=== PATIENT | female | born 1930 | race African-American/Black ===

== ENCOUNTER 2018-04-25 11:50 | Inpatient (IN) ==
[2018-04-25] MEDS ORDERED: ONDANSETRON 4 MG/2 ML VIAL IV PRN (17:39)
[2018-04-25] MEDS ORDERED: MAGNESIUM SULF RIDER 4 GM in PREMIX 1 EACH IV PRN (17:39)
[2018-04-25] MEDS ORDERED: ZALEPLON 5 MG CAPSULE PO PRN (17:39)
[2018-04-25] MEDS ORDERED: MAGNESIUM SULF RIDER 2 GM in PREMIX 1 EACH IV PRN (17:39)
[2018-04-25] MEDS ORDERED: ACETAMINOPHEN 325 MG TABLET PO PRN (17:39)
[2018-04-25] MEDS ORDERED: ALBUTEROL 2.5 MG/3 ML NEB RESP TX PRN (17:39)
[2018-04-25] MEDS: IPRATROPIUM 500 MCG/2.5 ML NEB RESP TX SCH (19:03)
[2018-04-25] MEDS: ALBUTEROL 2.5 MG/3 ML NEB RESP TX SCH ×2 (19:03→23:36)
[2018-04-25] MEDS: FUROSEMIDE 40 MG/4 ML VIAL IV SCH (19:32)
[2018-04-25] MEDS: methylPREDNISolone SOD SUC 40 MG/1 ML VIAL IV SCH (19:35)
[2018-04-25] MEDS: cefTRIAXone 1,000 MG in SYRINGE 1 EACH IV SCH (19:39)
[2018-04-25] MEDS: PHENYTOIN ER 100 MG CAPSULE PO SCH (21:05)
[2018-04-25] MEDS: CARVEDILOL 3.125 MG TABLET PO SCH (21:06)
[2018-04-25] MEDS: BUDESONIDE/FORMOTEROL 160-4.5 INHALER 6 GM INH SCH (21:10)
[2018-04-26] MEDS: IPRATROPIUM 500 MCG/2.5 ML NEB RESP TX SCH (01:14)
[2018-04-26 01:24] LABS: Apearance,Urine CLEAR (Clear); Bilirubin,Urine Negative (Negative); Blood, Urine Negative (Negative); Glucose,Urine (UA) Negative (Negative); Ketones,Urine Negative (Negative); Mucus,Urine Occasional /LPF (Occasional); Nitrite,Urine Negative (Negative); Protein,Urine 100 MG/DL; RBC,Urine 1 /HPF (0-4); Urine Color Straw (Yellow); Urine Specific Gravity 1.005 (1.001-1.035); Urine Urobilinogen < 2.0 EU/DL (0.2-1.0); WBC,Urine 2 /HPF (0-6)
[2018-04-26] MEDS: methylPREDNISolone SOD SUC 40 MG/1 ML VIAL IV SCH ×3 (02:43→17:49)
[2018-04-26] MEDS: ALBUTEROL 2.5 MG/3 ML NEB RESP TX SCH (03:03)
[2018-04-26 04:19] LABS: Basophils % 0.4 % (0.0-0.8); Hematocrit 25.7 VOL% (35.7-47.0); Hemoglobin 8.1 GM/DL (12.0-16.0); Immature Granulocytes % 0.4 %; Immature Granulocytes Absolute 0.01 #; Lymphocytes # 0.5 10*3/uL (1.4-4.0); Lymphocytes % 19.2 % (21.3-54.2); Mean Corpuscular HGB Conc 31.5 GM/DL (32-36); Mean Corpuscular Hemoglobin 29 PG (27-34); Mean Corpuscular Volume 90.8 FL (87-102); Monocytes # 0.1 10*3/uL (0.11-0.8); Monocytes % 2.1 % (1.7-12.7); Neutrophils # 1.9 10*3/uL (1.4-7.4); Neutrophils % 77.9 % (38.7-73.9); Platelet Count 167 T/CUMM (130-400); Red Blood Count 2.83 MC/CUMM (3.8-5.5); Red Cell Distribution Width 16.1 % (9.3-17.3); White Blood Count 2.4 T/CUMM (4-12)
[2018-04-26 04:38] LABS: Albumin 2.3 G/DL (3.4-5.0); Bilirubin,Total 0.4 MG/DL (0.2-1.0); Calcium 8.4 MG/DL (8.5-10.1); Osmolality,Calculated 299.1 MOS/KG (273-304); Potassium 5.1 MMOL/L (3.5-5.1); Risk Ratio 2.04; Total Protein 6.2 G/DL (6.4-8.3); VLDL CHOLESTEROL 14.8 MG/DL
[2018-04-26] MEDS: ALBUTEROL/IPRATROPIUM 3 ML NEB RESP TX SCH ×3 (08:14→19:23)
[2018-04-26] MEDS: FUROSEMIDE 40 MG/4 ML VIAL IV SCH ×2 (09:32→15:30)
[2018-04-26] MEDS: amLODIPine 10 MG TABLET PO SCH (09:33)
[2018-04-26] MEDS: PHENYTOIN ER 100 MG CAPSULE PO SCH ×2 (09:33→20:53)
[2018-04-26] MEDS: CARVEDILOL 3.125 MG TABLET PO SCH (09:33)
[2018-04-26] MEDS: ASPIRIN CHEW 81 MG TABLET PO SCH (09:33)
[2018-04-26] MEDS: ENOXAPARIN 30 MG/0.3 ML SYRINGE SUBCUT SCH (09:34)
[2018-04-26] MEDS: PANTOPRAZOLE 40 MG TABLET PO SCH (09:34)
[2018-04-26] MEDS: NICOTINE 21 MG/24 HR PATCH TRANSDERM SCH (09:34)
[2018-04-26] MEDS: BUDESONIDE/FORMOTEROL 160-4.5 INHALER 6 GM INH SCH ×2 (09:35→20:56)
[2018-04-26 09:45] LABS: Basophils % 0.4 % (0.0-0.8); Hematocrit 26.6 VOL% (35.7-47.0); Hemoglobin 8.7 GM/DL (12.0-16.0); Immature Granulocytes % 0.4 %; Immature Granulocytes Absolute 0.01 #; Lymphocytes # 0.5 10*3/uL (1.4-4.0); Lymphocytes % 21.5 % (21.3-54.2); Mean Corpuscular HGB Conc 32.7 GM/DL (32-36); Mean Corpuscular Hemoglobin 30 PG (27-34); Mean Corpuscular Volume 92.7 FL (87-102); Mean Platelet Volume 10.8 FL (9.6-12.0); Monocytes % 1.8 % (1.7-12.7); Neutrophils # 1.7 10*3/uL (1.4-7.4); Neutrophils % 75.9 % (38.7-73.9); Platelet Count 184 T/CUMM (130-400); Red Blood Count 2.87 MC/CUMM (3.8-5.5); Red Cell Distribution Width 16.2 % (9.3-17.3); White Blood Count 2.3 T/CUMM (4-12)
[2018-04-26 10:01] LABS: Folate 9.1 NG/ML (5.4-24.0); Vitamin B12 391 PG/ML (211-911)
[2018-04-26 11:01] LABS: Sedimentation Rate-Westergren 56 MM/HR (0-30)
[2018-04-26] MEDS: cefTRIAXone 1,000 MG in SYRINGE 1 EACH IV SCH (17:49)
[2018-04-26] MEDS: ROSUVASTATIN 10 MG TABLET PO SCH (20:54)
[2018-04-26] MEDS: CARVEDILOL 6.25 MG TABLET PO SCH (20:54)
[2018-04-27] MEDS: ALBUTEROL/IPRATROPIUM 3 ML NEB RESP TX SCH ×4 (00:57→19:29)
[2018-04-27] MEDS: methylPREDNISolone SOD SUC 40 MG/1 ML VIAL IV SCH ×3 (02:29→18:36)
[2018-04-27 03:01] LABS: Basophils % 0.2 % (0.0-0.8); Hematocrit 24.1 VOL% (35.7-47.0); Hemoglobin 7.8 GM/DL (12.0-16.0); Immature Granulocytes % 0.2 %; Immature Granulocytes Absolute 0.01 #; Lymphocytes # 0.8 10*3/uL (1.4-4.0); Lymphocytes % 19.1 % (21.3-54.2); Mean Corpuscular HGB Conc 32.4 GM/DL (32-36); Mean Corpuscular Hemoglobin 29 PG (27-34); Mean Corpuscular Volume 90.6 FL (87-102); Monocytes # 0.2 10*3/uL (0.11-0.8); Monocytes % 4.2 % (1.7-12.7); Neutrophils # 3.1 10*3/uL (1.4-7.4); Neutrophils % 76.3 % (38.7-73.9); Platelet Count 167 T/CUMM (130-400); Red Blood Count 2.66 MC/CUMM (3.8-5.5); Red Cell Distribution Width 15.9 % (9.3-17.3); White Blood Count 4.1 T/CUMM (4-12)
[2018-04-27 03:26] LABS: Calcium 7.8 MG/DL (8.5-10.1); Osmolality,Calculated 306.8 MOS/KG (273-304); Potassium 4.5 MMOL/L (3.5-5.1)
[2018-04-27 03:29] LABS: Albumin 2.3 G/DL (3.4-5.0); Bilirubin,Total 0.6 MG/DL (0.2-1.0); Calcium 7.9 MG/DL (8.5-10.1); Potassium 4.5 MMOL/L (3.5-5.1)
[2018-04-27] MEDS: FUROSEMIDE 40 MG/4 ML VIAL IV SCH ×2 (08:03→17:24)
[2018-04-27] MEDS ORDERED: SODIUM CHLORIDE 0.9% 1,000 ML IV PRN (08:24)
[2018-04-27] MEDS ORDERED: FUROSEMIDE 40 MG/4 ML VIAL IV ONE (08:25)
[2018-04-27] MEDS: NICOTINE 21 MG/24 HR PATCH TRANSDERM SCH (09:22)
[2018-04-27] MEDS: PHENYTOIN ER 100 MG CAPSULE PO SCH ×2 (09:23→20:27)
[2018-04-27] MEDS: ENOXAPARIN 30 MG/0.3 ML SYRINGE SUBCUT SCH (09:23)
[2018-04-27] MEDS: amLODIPine 10 MG TABLET PO SCH (09:23)
[2018-04-27] MEDS: BUDESONIDE/FORMOTEROL 160-4.5 INHALER 6 GM INH SCH ×2 (09:23→20:27)
[2018-04-27] MEDS: CARVEDILOL 6.25 MG TABLET PO SCH (09:23)
[2018-04-27] MEDS: PANTOPRAZOLE 40 MG TABLET PO SCH (09:23)
[2018-04-27] MEDS: ASPIRIN CHEW 81 MG TABLET PO SCH (09:23)
[2018-04-27] MEDS: cefTRIAXone 1,000 MG in SYRINGE 1 EACH IV SCH (18:32)
[2018-04-27] MEDS: ROSUVASTATIN 10 MG TABLET PO SCH (20:26)
[2018-04-27] MEDS: CARVEDILOL 12.5 MG TABLET PO SCH (20:27)
[2018-04-27] MEDS: guaiFENesin 200 MG/10 ML UDCUP PO PRN (21:30)
[2018-04-27 22:33] LABS: Hematocrit 35.8 VOL% (35.7-47.0); Hemoglobin 11.4 GM/DL (12.0-16.0)
[2018-04-28] MEDS: ALBUTEROL/IPRATROPIUM 3 ML NEB RESP TX SCH ×4 (00:13→19:25)
[2018-04-28] MEDS: guaiFENesin 200 MG/10 ML UDCUP PO PRN (02:08)
[2018-04-28] MEDS: methylPREDNISolone SOD SUC 40 MG/1 ML VIAL IV SCH ×3 (02:08→17:00)
[2018-04-28 04:18] LABS: Basophils % 0.1 % (0.0-0.8); Hematocrit 35.1 VOL% (35.7-47.0); Hemoglobin 11.3 GM/DL (12.0-16.0); Immature Granulocytes % 0.4 %; Immature Granulocytes Absolute 0.03 #; Lymphocytes # 0.9 10*3/uL (1.4-4.0); Lymphocytes % 12.4 % (21.3-54.2); Mean Corpuscular HGB Conc 32.2 GM/DL (32-36); Mean Corpuscular Hemoglobin 29 PG (27-34); Mean Corpuscular Volume 89.5 FL (87-102); Mean Platelet Volume 10.5 FL (9.6-12.0); Monocytes # 0.2 10*3/uL (0.11-0.8); Monocytes % 2.9 % (1.7-12.7); Neutrophils # 5.7 10*3/uL (1.4-7.4); Neutrophils % 84.2 % (38.7-73.9); Platelet Count 195 T/CUMM (130-400); Red Blood Count 3.92 MC/CUMM (3.8-5.5); Red Cell Distribution Width 15.7 % (9.3-17.3); White Blood Count 6.8 T/CUMM (4-12)
[2018-04-28 04:52] LABS: Calcium 8.4 MG/DL (8.5-10.1); Osmolality,Calculated 298.4 MOS/KG (273-304)
[2018-04-28] MEDS: CARVEDILOL 12.5 MG TABLET PO SCH ×2 (08:50→20:23)
[2018-04-28] MEDS: FUROSEMIDE 40 MG/4 ML VIAL IV SCH ×2 (08:50→16:54)
[2018-04-28] MEDS: PHENYTOIN ER 100 MG CAPSULE PO SCH ×2 (08:50→20:22)
[2018-04-28] MEDS: amLODIPine 10 MG TABLET PO SCH (08:50)
[2018-04-28] MEDS: ASPIRIN CHEW 81 MG TABLET PO SCH (08:50)
[2018-04-28] MEDS: NICOTINE 21 MG/24 HR PATCH TRANSDERM SCH (08:54)
[2018-04-28] MEDS: ENOXAPARIN 30 MG/0.3 ML SYRINGE SUBCUT SCH (08:57)
[2018-04-28] MEDS: BUDESONIDE/FORMOTEROL 160-4.5 INHALER 6 GM INH SCH ×2 (08:57→20:23)
[2018-04-28] MEDS: PANTOPRAZOLE 40 MG TABLET PO SCH (08:57)
[2018-04-28 10:19] LABS: Hemoglobin A1 (Alkaline) 62.7 % (96.5-98.5); Hemoglobin A2 (Alkaline) 1.9 % (1.5-3.5); Hemoglobin S (Alkaline) 35.4 %
[2018-04-28] MEDS: cefTRIAXone 1,000 MG in SYRINGE 1 EACH IV SCH (17:02)
[2018-04-28] MEDS: ROSUVASTATIN 10 MG TABLET PO SCH (20:22)
[2018-04-29] MEDS: ALBUTEROL/IPRATROPIUM 3 ML NEB RESP TX SCH ×4 (00:06→19:19)
[2018-04-29] MEDS: methylPREDNISolone SOD SUC 40 MG/1 ML VIAL IV SCH ×3 (02:22→19:06)
[2018-04-29 03:46] LABS: Basophils % 0.3 % (0.0-0.8); Hematocrit 33.1 VOL% (35.7-47.0); Hemoglobin 10.9 GM/DL (12.0-16.0); Immature Granulocytes % 0.5 %; Immature Granulocytes Absolute 0.03 #; Lymphocytes # 1.3 10*3/uL (1.4-4.0); Lymphocytes % 19.2 % (21.3-54.2); Mean Corpuscular HGB Conc 32.9 GM/DL (32-36); Mean Corpuscular Hemoglobin 29 PG (27-34); Mean Corpuscular Volume 88.7 FL (87-102); Mean Platelet Volume 11.1 FL (9.6-12.0); Monocytes # 0.3 10*3/uL (0.11-0.8); Monocytes % 4.9 % (1.7-12.7); Neutrophils # 4.9 10*3/uL (1.4-7.4); Neutrophils % 75.1 % (38.7-73.9); Platelet Count 187 T/CUMM (130-400); Red Blood Count 3.73 MC/CUMM (3.8-5.5); Red Cell Distribution Width 15.5 % (9.3-17.3); White Blood Count 6.5 T/CUMM (4-12)
[2018-04-29 04:06] LABS: Osmolality,Calculated 305.1 MOS/KG (273-304); Potassium 4.5 MMOL/L (3.5-5.1)
[2018-04-29] MEDS: ASPIRIN CHEW 81 MG TABLET PO SCH (09:01)
[2018-04-29] MEDS: hydrALAZINE 25 MG TABLET PO SCH ×2 (09:01→20:41)
[2018-04-29] MEDS: CARVEDILOL 12.5 MG TABLET PO SCH ×2 (09:01→20:41)
[2018-04-29] MEDS: PHENYTOIN ER 100 MG CAPSULE PO SCH ×2 (09:02→20:41)
[2018-04-29] MEDS: ENOXAPARIN 30 MG/0.3 ML SYRINGE SUBCUT SCH (09:02)
[2018-04-29] MEDS: NICOTINE 21 MG/24 HR PATCH TRANSDERM SCH (09:02)
[2018-04-29] MEDS: amLODIPine 10 MG TABLET PO SCH (09:03)
[2018-04-29] MEDS: BUDESONIDE/FORMOTEROL 160-4.5 INHALER 6 GM INH SCH ×2 (09:03→20:41)
[2018-04-29] MEDS: PANTOPRAZOLE 40 MG TABLET PO SCH (09:24)
[2018-04-29] MEDS: FUROSEMIDE 40 MG/4 ML VIAL IV SCH ×3 (09:29→16:22)
[2018-04-29] MEDS ORDERED: MAGNESIUM HYDROXIDE SUSP 30 ML UDCUP PO PRN (09:49)
[2018-04-29] MEDS: POLYETHYLENE GLYCOL POWDER 17 GM PACK PO SCH (10:30)
[2018-04-29] MEDS ORDERED: diphenhydrAMINE CAP 25 MG CAPSULE PO PRN (16:13)
[2018-04-29] MEDS: ROSUVASTATIN 10 MG TABLET PO SCH (20:41)
[2018-04-30] MEDS: ALBUTEROL/IPRATROPIUM 3 ML NEB RESP TX SCH ×4 (00:24→19:23)
[2018-04-30] MEDS: methylPREDNISolone SOD SUC 40 MG/1 ML VIAL IV SCH ×3 (01:01→17:47)
[2018-04-30 03:56] LABS: Hematocrit 34.4 VOL% (35.7-47.0); Hemoglobin 11.3 GM/DL (12.0-16.0); Immature Granulocytes % 0.6 %; Immature Granulocytes Absolute 0.04 #; Lymphocytes # 0.7 10*3/uL (1.4-4.0); Lymphocytes % 10.8 % (21.3-54.2); Mean Corpuscular HGB Conc 32.8 GM/DL (32-36); Mean Corpuscular Hemoglobin 29 PG (27-34); Mean Corpuscular Volume 89.6 FL (87-102); Monocytes # 0.2 10*3/uL (0.11-0.8); Monocytes % 2.9 % (1.7-12.7); Neutrophils # 5.4 10*3/uL (1.4-7.4); Neutrophils % 85.7 % (38.7-73.9); Platelet Count 189 T/CUMM (130-400); Red Blood Count 3.84 MC/CUMM (3.8-5.5); Red Cell Distribution Width 15.4 % (9.3-17.3); White Blood Count 6.3 T/CUMM (4-12)
[2018-04-30 04:23] LABS: Calcium 7.8 MG/DL (8.5-10.1); Osmolality,Calculated 309.4 MOS/KG (273-304)
[2018-04-30] MEDS: guaiFENesin 200 MG/10 ML UDCUP PO PRN ×2 (06:17→11:02)
[2018-04-30] MEDS: FUROSEMIDE 40 MG/4 ML VIAL IV SCH ×2 (09:47→16:02)
[2018-04-30] MEDS: ENOXAPARIN 30 MG/0.3 ML SYRINGE SUBCUT SCH (09:47)
[2018-04-30] MEDS: NICOTINE 21 MG/24 HR PATCH TRANSDERM SCH (09:47)
[2018-04-30] MEDS: PHENYTOIN ER 100 MG CAPSULE PO SCH ×2 (09:48→20:21)
[2018-04-30] MEDS: amLODIPine 10 MG TABLET PO SCH (09:48)
[2018-04-30] MEDS: CARVEDILOL 12.5 MG TABLET PO SCH ×2 (09:48→20:21)
[2018-04-30] MEDS: hydrALAZINE 25 MG TABLET PO SCH ×3 (09:48→20:21)
[2018-04-30] MEDS: PANTOPRAZOLE 40 MG TABLET PO SCH (09:48)
[2018-04-30] MEDS: ASPIRIN CHEW 81 MG TABLET PO SCH (09:48)
[2018-04-30] MEDS: BUDESONIDE/FORMOTEROL 160-4.5 INHALER 6 GM INH SCH ×2 (09:49→20:21)
[2018-04-30] MEDS: POLYETHYLENE GLYCOL POWDER 17 GM PACK PO SCH (09:49)
[2018-04-30] MEDS: metOLazone 5 MG TABLET PO SCH (12:53)
[2018-04-30] MEDS: ROSUVASTATIN 10 MG TABLET PO SCH (20:21)
[2018-05-01] MEDS: ALBUTEROL/IPRATROPIUM 3 ML NEB RESP TX SCH ×4 (00:23→19:11)
[2018-05-01] MEDS: methylPREDNISolone SOD SUC 40 MG/1 ML VIAL IV SCH ×3 (02:21→17:18)
[2018-05-01 05:35] LABS: Hematocrit 35.4 VOL% (35.7-47.0); Hemoglobin 11.8 GM/DL (12.0-16.0); Immature Granulocytes % 1.1 %; Immature Granulocytes Absolute 0.06 #; Lymphocytes # 0.7 10*3/uL (1.4-4.0); Lymphocytes % 12.3 % (21.3-54.2); Mean Corpuscular HGB Conc 33.3 GM/DL (32-36); Mean Corpuscular Hemoglobin 30 PG (27-34); Mean Corpuscular Volume 89.2 FL (87-102); Mean Platelet Volume 10.7 FL (9.6-12.0); Monocytes # 0.2 10*3/uL (0.11-0.8); Monocytes % 3.7 % (1.7-12.7); Neutrophils # 4.7 10*3/uL (1.4-7.4); Neutrophils % 82.9 % (38.7-73.9); Platelet Count 203 T/CUMM (130-400); Red Blood Count 3.97 MC/CUMM (3.8-5.5); Red Cell Distribution Width 15.4 % (9.3-17.3); White Blood Count 5.7 T/CUMM (4-12)
[2018-05-01 05:48] LABS: Osmolality,Calculated 310.4 MOS/KG (273-304); Potassium 4.8 MMOL/L (3.5-5.1)
[2018-05-01 05:49] LABS: Osmolality,Calculated 310.4 MOS/KG (273-304); Potassium 4.9 MMOL/L (3.5-5.1)
[2018-05-01] MEDS: NICOTINE 21 MG/24 HR PATCH TRANSDERM SCH (08:33)
[2018-05-01] MEDS: POLYETHYLENE GLYCOL POWDER 17 GM PACK PO SCH (08:35)
[2018-05-01] MEDS: PHENYTOIN ER 100 MG CAPSULE PO SCH ×2 (08:36→21:44)
[2018-05-01] MEDS: ENOXAPARIN 30 MG/0.3 ML SYRINGE SUBCUT SCH (08:37)
[2018-05-01] MEDS: CARVEDILOL 12.5 MG TABLET PO SCH ×2 (08:37→21:44)
[2018-05-01] MEDS: metOLazone 5 MG TABLET PO SCH (08:37)
[2018-05-01] MEDS: hydrALAZINE 25 MG TABLET PO SCH ×3 (08:37→21:43)
[2018-05-01] MEDS: amLODIPine 10 MG TABLET PO SCH (08:37)
[2018-05-01] MEDS: PANTOPRAZOLE 40 MG TABLET PO SCH (08:37)
[2018-05-01] MEDS: FUROSEMIDE 40 MG/4 ML VIAL IV SCH ×2 (08:37→15:11)
[2018-05-01] MEDS: ASPIRIN CHEW 81 MG TABLET PO SCH (08:37)
[2018-05-01] MEDS: BUDESONIDE/FORMOTEROL 160-4.5 INHALER 6 GM INH SCH ×2 (09:07→21:45)
[2018-05-01] MEDS: ROSUVASTATIN 10 MG TABLET PO SCH (21:44)
[2018-05-02] MEDS: ALBUTEROL/IPRATROPIUM 3 ML NEB RESP TX SCH ×4 (00:17→19:39)
[2018-05-02] MEDS: methylPREDNISolone SOD SUC 40 MG/1 ML VIAL IV SCH ×2 (02:17→09:31)
[2018-05-02 06:06] LABS: Basophils % 0.2 % (0.0-0.8); Hemoglobin 11.2 GM/DL (12.0-16.0); Immature Granulocytes % 1.3 %; Immature Granulocytes Absolute 0.08 #; Lymphocytes % 16.1 % (21.3-54.2); Mean Corpuscular HGB Conc 32.9 GM/DL (32-36); Mean Corpuscular Hemoglobin 29 PG (27-34); Mean Platelet Volume 11.1 FL (9.6-12.0); Monocytes # 0.5 10*3/uL (0.11-0.8); Monocytes % 7.7 % (1.7-12.7); Neutrophils # 4.5 10*3/uL (1.4-7.4); Neutrophils % 74.7 % (38.7-73.9); Platelet Count 207 T/CUMM (130-400); Red Blood Count 3.82 MC/CUMM (3.8-5.5); Red Cell Distribution Width 15.7 % (9.3-17.3)
[2018-05-02 06:23] LABS: Calcium 8.1 MG/DL (8.5-10.1); Osmolality,Calculated 313.3 MOS/KG (273-304); Potassium 4.6 MMOL/L (3.5-5.1)
[2018-05-02 06:24] LABS: Calcium 7.9 MG/DL (8.5-10.1); Osmolality,Calculated 313.3 MOS/KG (273-304); Potassium 4.6 MMOL/L (3.5-5.1)
[2018-05-02] MEDS: PANTOPRAZOLE 40 MG TABLET PO SCH ×2 (07:09→09:35)
[2018-05-02] MEDS: POLYETHYLENE GLYCOL POWDER 17 GM PACK PO SCH (09:07)
[2018-05-02] MEDS: hydrALAZINE 25 MG TABLET PO SCH ×3 (09:08→20:59)
[2018-05-02] MEDS: PHENYTOIN ER 100 MG CAPSULE PO SCH ×2 (09:10→20:59)
[2018-05-02] MEDS: NICOTINE 21 MG/24 HR PATCH TRANSDERM SCH (09:10)
[2018-05-02] MEDS: amLODIPine 10 MG TABLET PO SCH (09:11)
[2018-05-02] MEDS: ASPIRIN CHEW 81 MG TABLET PO SCH (09:11)
[2018-05-02] MEDS: metOLazone 5 MG TABLET PO SCH (09:12)
[2018-05-02] MEDS: CARVEDILOL 12.5 MG TABLET PO SCH ×2 (09:12→20:59)
[2018-05-02] MEDS: ENOXAPARIN 30 MG/0.3 ML SYRINGE SUBCUT SCH (09:13)
[2018-05-02] MEDS: FUROSEMIDE 40 MG/4 ML VIAL IV SCH ×2 (09:15→16:21)
[2018-05-02] MEDS: BUDESONIDE/FORMOTEROL 160-4.5 INHALER 6 GM INH SCH ×2 (09:35→20:59)
[2018-05-02] MEDS: ROSUVASTATIN 10 MG TABLET PO SCH (20:59)
[2018-05-03] MEDS: ALBUTEROL/IPRATROPIUM 3 ML NEB RESP TX SCH ×4 (01:29→20:20)
[2018-05-03 05:07] LABS: Basophils % 0.2 % (0.0-0.8); Eosinophils % 0.5 % (0.00-10.9); Hemoglobin 11.4 GM/DL (12.0-16.0); Immature Granulocytes % 0.9 %; Immature Granulocytes Absolute 0.06 #; Lymphocytes # 1.9 10*3/uL (1.4-4.0); Lymphocytes % 28.9 % (21.3-54.2); Mean Corpuscular HGB Conc 33.5 GM/DL (32-36); Mean Corpuscular Hemoglobin 30 PG (27-34); Mean Corpuscular Volume 88.5 FL (87-102); Mean Platelet Volume 11.5 FL (9.6-12.0); Monocytes # 0.6 10*3/uL (0.11-0.8); Monocytes % 8.4 % (1.7-12.7); Neutrophils % 61.1 % (38.7-73.9); Platelet Count 209 T/CUMM (130-400); Red Blood Count 3.84 MC/CUMM (3.8-5.5); Red Cell Distribution Width 15.7 % (9.3-17.3); White Blood Count 6.6 T/CUMM (4-12)
[2018-05-03 05:35] LABS: Calcium 8.2 MG/DL (8.5-10.1); Osmolality,Calculated 314.4 MOS/KG (273-304); Potassium 4.4 MMOL/L (3.5-5.1)
[2018-05-03] MEDS: ENOXAPARIN 30 MG/0.3 ML SYRINGE SUBCUT SCH (08:07)
[2018-05-03] MEDS: POLYETHYLENE GLYCOL POWDER 17 GM PACK PO SCH (08:07)
[2018-05-03] MEDS: NICOTINE 21 MG/24 HR PATCH TRANSDERM SCH (08:07)
[2018-05-03] MEDS: PHENYTOIN ER 100 MG CAPSULE PO SCH ×2 (08:08→20:31)
[2018-05-03] MEDS: hydrALAZINE 25 MG TABLET PO SCH ×3 (08:08→20:31)
[2018-05-03] MEDS: metOLazone 5 MG TABLET PO SCH (08:08)
[2018-05-03] MEDS: predniSONE 20 MG TABLET PO SCH (08:08)
[2018-05-03] MEDS: CARVEDILOL 12.5 MG TABLET PO SCH (08:09)
[2018-05-03] MEDS: ASPIRIN CHEW 81 MG TABLET PO SCH (08:09)
[2018-05-03] MEDS: amLODIPine 10 MG TABLET PO SCH (08:09)
[2018-05-03] MEDS: FUROSEMIDE 40 MG/4 ML VIAL IV SCH ×2 (08:09→15:43)
[2018-05-03] MEDS: PANTOPRAZOLE 40 MG TABLET PO SCH (08:16)
[2018-05-03] MEDS: BUDESONIDE/FORMOTEROL 160-4.5 INHALER 6 GM INH SCH ×2 (08:17→20:31)
[2018-05-03] MEDS ORDERED: ALUM/MAG/SIMETH/LIDO VISC 1:1 30 ML BOTTLE PO ONE (10:29)
[2018-05-03] MEDS ORDERED: NITROGLYCERIN SL 0.4 MG TABLET SL ONE (10:35)
[2018-05-03 14:25] LABS: Troponin I < 0.015 NG/ML (0.00-0.045)
[2018-05-03 16:52] LABS: Troponin I < 0.015 NG/ML (0.00-0.045)
[2018-05-03] MEDS: CARVEDILOL 6.25 MG TABLET PO SCH (20:31)
[2018-05-03] MEDS: ROSUVASTATIN 10 MG TABLET PO SCH (20:31)
[2018-05-03 21:13] LABS: Troponin I < 0.015 NG/ML (0.00-0.045)
[2018-05-04] MEDS: ALBUTEROL/IPRATROPIUM 3 ML NEB RESP TX SCH ×4 (00:40→19:22)
[2018-05-04 03:54] LABS: Basophils % 0.2 % (0.0-0.8); Eosinophils % 0.3 % (0.00-10.9); Hematocrit 32.6 VOL% (35.7-47.0); Hemoglobin 10.6 GM/DL (12.0-16.0); Immature Granulocytes % 0.3 %; Immature Granulocytes Absolute 0.02 #; Lymphocytes # 1.7 10*3/uL (1.4-4.0); Lymphocytes % 28.3 % (21.3-54.2); Mean Corpuscular HGB Conc 32.5 GM/DL (32-36); Mean Corpuscular Hemoglobin 29 PG (27-34); Mean Corpuscular Volume 88.6 FL (87-102); Mean Platelet Volume 10.8 FL (9.6-12.0); Monocytes # 0.5 10*3/uL (0.11-0.8); Monocytes % 8.7 % (1.7-12.7); Neutrophils # 3.7 10*3/uL (1.4-7.4); Neutrophils % 62.2 % (38.7-73.9); Platelet Count 185 T/CUMM (130-400); Red Blood Count 3.68 MC/CUMM (3.8-5.5); Red Cell Distribution Width 15.7 % (9.3-17.3)
[2018-05-04 04:13] LABS: Osmolality,Calculated 314.5 MOS/KG (273-304); Potassium 3.8 MMOL/L (3.5-5.1)
[2018-05-04] MEDS: FUROSEMIDE 40 MG/4 ML VIAL IV SCH (08:39)
[2018-05-04] MEDS: hydrALAZINE 25 MG TABLET PO SCH ×3 (08:47→21:22)
[2018-05-04] MEDS: ASPIRIN CHEW 81 MG TABLET PO SCH (08:48)
[2018-05-04] MEDS: PHENYTOIN ER 100 MG CAPSULE PO SCH ×2 (08:49→21:21)
[2018-05-04] MEDS: CARVEDILOL 6.25 MG TABLET PO SCH ×2 (08:49→21:21)
[2018-05-04] MEDS: ENOXAPARIN 30 MG/0.3 ML SYRINGE SUBCUT SCH (08:50)
[2018-05-04] MEDS: POLYETHYLENE GLYCOL POWDER 17 GM PACK PO SCH (08:53)
[2018-05-04] MEDS: amLODIPine 10 MG TABLET PO SCH (08:54)
[2018-05-04] MEDS: NICOTINE 21 MG/24 HR PATCH TRANSDERM SCH (08:55)
[2018-05-04] MEDS: PANTOPRAZOLE 40 MG TABLET PO SCH (08:58)
[2018-05-04] MEDS: predniSONE 20 MG TABLET PO SCH (08:58)
[2018-05-04] MEDS: metOLazone 5 MG TABLET PO SCH (08:59)
[2018-05-04] MEDS: BUDESONIDE/FORMOTEROL 160-4.5 INHALER 6 GM INH SCH ×2 (09:01→21:22)
[2018-05-04] MEDS: FUROSEMIDE 80 MG TABLET PO SCH (16:39)
[2018-05-04] MEDS: ROSUVASTATIN 10 MG TABLET PO SCH (21:21)
[2018-05-05 05:25] LABS: Hematocrit 33.7 VOL% (35.7-47.0); Hemoglobin 11.3 GM/DL (12.0-16.0); Red Blood Count 3.81 MC/CUMM (3.8-5.5); White Blood Count 6.2 T/CUMM (4-12)
[2018-05-05 05:26] LABS: Basophils % 0.2 % (0.0-0.8); Eosinophils % 0.6 % (0.00-10.9); Immature Granulocytes % 0.5 %; Immature Granulocytes Absolute 0.03 #; Lymphocytes # 1.5 10*3/uL (1.4-4.0); Lymphocytes % 24.3 % (21.3-54.2); Mean Corpuscular HGB Conc 33.5 GM/DL (32-36); Mean Corpuscular Hemoglobin 30 PG (27-34); Mean Corpuscular Volume 88.5 FL (87-102); Mean Platelet Volume 11.7 FL (9.6-12.0); Monocytes # 0.6 10*3/uL (0.11-0.8); Neutrophils % 64.4 % (38.7-73.9); Platelet Count 150 T/CUMM (130-400); Red Cell Distribution Width 15.4 % (9.3-17.3)
[2018-05-05 05:36] LABS: Calcium 8.1 MG/DL (8.5-10.1); Potassium 3.8 MMOL/L (3.5-5.1)
[2018-05-05 05:47] LABS: Platelet Estimate Normal
[2018-05-05] MEDS: ALBUTEROL/IPRATROPIUM 3 ML NEB RESP TX SCH ×4 (07:12→20:05)
[2018-05-05] MEDS: predniSONE 20 MG TABLET PO SCH (10:10)
[2018-05-05] MEDS: ASPIRIN CHEW 81 MG TABLET PO SCH (10:10)
[2018-05-05] MEDS: PHENYTOIN ER 100 MG CAPSULE PO SCH ×2 (10:10→21:02)
[2018-05-05] MEDS: hydrALAZINE 25 MG TABLET PO SCH ×3 (10:11→21:02)
[2018-05-05] MEDS: FUROSEMIDE 80 MG TABLET PO SCH ×2 (10:11→16:02)
[2018-05-05] MEDS: CARVEDILOL 6.25 MG TABLET PO SCH ×2 (10:11→21:02)
[2018-05-05] MEDS: PANTOPRAZOLE 40 MG TABLET PO SCH (10:11)
[2018-05-05] MEDS: metOLazone 5 MG TABLET PO SCH (10:12)
[2018-05-05] MEDS: amLODIPine 10 MG TABLET PO SCH (10:12)
[2018-05-05] MEDS: NICOTINE 21 MG/24 HR PATCH TRANSDERM SCH (10:13)
[2018-05-05] MEDS: POLYETHYLENE GLYCOL POWDER 17 GM PACK PO SCH (10:14)
[2018-05-05] MEDS: ENOXAPARIN 30 MG/0.3 ML SYRINGE SUBCUT SCH (10:14)
[2018-05-05] MEDS: BUDESONIDE/FORMOTEROL 160-4.5 INHALER 6 GM INH SCH ×2 (10:14→21:03)
[2018-05-05] MEDS: ROSUVASTATIN 10 MG TABLET PO SCH (21:02)
[2018-05-06] MEDS: ALBUTEROL/IPRATROPIUM 3 ML NEB RESP TX SCH ×2 (01:41→07:20)
[2018-05-06 07:03] LABS: Hematocrit 32.6 VOL% (35.7-47.0); Hemoglobin 10.9 GM/DL (12.0-16.0); Lymphocytes % 22.1 % (21.3-54.2); Mean Corpuscular HGB Conc 33.4 GM/DL (32-36); Mean Corpuscular Hemoglobin 30 PG (27-34); Mean Corpuscular Volume 88.6 FL (87-102); Mean Platelet Volume 10.6 FL (9.6-12.0); Monocytes % 8.1 % (1.7-12.7); Neutrophils % 69.1 % (38.7-73.9); Platelet Count 151 T/CUMM (130-400); Red Blood Count 3.68 MC/CUMM (3.8-5.5); Red Cell Distribution Width 15.2 % (9.3-17.3); White Blood Count 6.8 T/CUMM (4-12)
[2018-05-06 07:04] LABS: Basophils % 0.1 % (0.0-0.8); Eosinophils % 0.3 % (0.00-10.9); Immature Granulocytes % 0.3 %; Immature Granulocytes Absolute 0.02 #; Lymphocytes # 1.5 10*3/uL (1.4-4.0); Monocytes # 0.6 10*3/uL (0.11-0.8); Neutrophils # 4.7 10*3/uL (1.4-7.4)
[2018-05-06 07:29] LABS: Calcium 8.4 MG/DL (8.5-10.1); Osmolality,Calculated 316.4 MOS/KG (273-304); Potassium 3.5 MMOL/L (3.5-5.1)
[2018-05-06] MEDS: FUROSEMIDE 80 MG TABLET PO SCH (08:58)
[2018-05-06] MEDS: PHENYTOIN ER 100 MG CAPSULE PO SCH (08:58)
[2018-05-06] MEDS: PANTOPRAZOLE 40 MG TABLET PO SCH (08:58)
[2018-05-06] MEDS: predniSONE 20 MG TABLET PO SCH (08:58)
[2018-05-06] MEDS: CARVEDILOL 6.25 MG TABLET PO SCH (08:58)
[2018-05-06] MEDS: ASPIRIN CHEW 81 MG TABLET PO SCH (08:59)
[2018-05-06] MEDS: NICOTINE 21 MG/24 HR PATCH TRANSDERM SCH (08:59)
[2018-05-06] MEDS: BUDESONIDE/FORMOTEROL 160-4.5 INHALER 6 GM INH SCH (08:59)
[2018-05-06] MEDS: metOLazone 5 MG TABLET PO SCH (08:59)
[2018-05-06] MEDS: amLODIPine 10 MG TABLET PO SCH (08:59)
[2018-05-06] MEDS: ENOXAPARIN 30 MG/0.3 ML SYRINGE SUBCUT SCH (09:00)
[2018-05-06] MEDS: POLYETHYLENE GLYCOL POWDER 17 GM PACK PO SCH (09:00)
[2018-05-06] MEDS ORDERED: TUBERCULIN SKIN TEST 0.1 ML SYRINGE INTRADERM ONE (10:34)
[2018-05-06 12:39] VITALS: BP 153/70
== END 2018-05-06 13:08 | DRG 291 ==
LOC: SUATTDRO 16:50 → N.TELES 16:50
PROVIDERS: ADMIT Internal Medicine

== ENCOUNTER 2018-05-11 15:53 | Inpatient (IN) ==
[2018-05-11] MEDS ORDERED: ONDANSETRON 4 MG/2 ML VIAL IV STA (16:41)
[2018-05-11] MEDS ORDERED: methylPREDNISolone SOD SUC 125 MG/2 ML VIAL IV STA (16:41)
[2018-05-11] MEDS ORDERED: ALBUTEROL NEB SOLN 5 MG/ML 20 ML/BOTTLE RESP TX SCH (17:00)
[2018-05-11 17:08] LABS: Basophils % 0.1 % (0.0-0.8); Eosinophils % 0.1 % (0.00-10.9); Hematocrit 36.1 VOL% (35.7-47.0); Immature Granulocytes % 0.4 %; Immature Granulocytes Absolute 0.03 #; Lymphocytes # 0.8 10*3/uL (1.4-4.0); Lymphocytes % 11.1 % (21.3-54.2); Mean Corpuscular HGB Conc 33.2 GM/DL (32-36); Mean Corpuscular Hemoglobin 30 PG (27-34); Mean Corpuscular Volume 90.5 FL (87-102); Mean Platelet Volume 11.7 FL (9.6-12.0); Monocytes # 0.6 10*3/uL (0.11-0.8); Monocytes % 8.4 % (1.7-12.7); Neutrophils # 5.4 10*3/uL (1.4-7.4); Neutrophils % 79.9 % (38.7-73.9); Platelet Count 152 T/CUMM (130-400); Red Blood Count 3.99 MC/CUMM (3.8-5.5); Red Cell Distribution Width 14.7 % (9.3-17.3); White Blood Count 6.8 T/CUMM (4-12)
[2018-05-11 17:13] LABS: PT Patient Result 10.9 SECS
[2018-05-11 17:25] LABS: Bilirubin,Total 0.6 MG/DL (0.2-1.0); Calcium 8.8 MG/DL (8.5-10.1); Osmolality,Calculated 320.7 MOS/KG (273-304); Potassium 3.7 MMOL/L (3.5-5.1); Total Protein 6.8 G/DL (6.4-8.3)
[2018-05-11 17:58] LABS: Amorphous Crystals,Urine Occasional /HPF (Few); Apearance,Urine Slightly Hazy (Clear); Bacteria,Urine Occasional /HPF (Few); Bilirubin,Urine Negative (Negative); Blood, Urine Negative (Negative); Glucose,Urine (UA) Negative (Negative); Ketones,Urine Negative (Negative); Mucus,Urine Occasional /LPF (Occasional); Nitrite,Urine Negative (Negative); Protein,Urine 100 MG/DL; RBC,Urine 4 /HPF (0-4); Urine Color Yellow (Yellow); Urine Specific Gravity 1.008 (1.001-1.035); Urine Urobilinogen < 2.0 EU/DL (0.2-1.0); WBC,Urine 16 /HPF (0-6)
[2018-05-11] MEDS ORDERED: cefTRIAXone 1,000 MG in SODIUM CHLORIDE 0.9% 100 ML IV STA (18:13)
[2018-05-11] MEDS ORDERED: cefTRIAXone 1,000 MG in SYRINGE 1 EACH IV STA (18:29)
[2018-05-11] MEDS ORDERED: DEXTROSE 50% 25 GM/50 ML VIAL IV PRN ×2 (19:38→20:03)
[2018-05-11] MEDS ORDERED: ACETAMINOPHEN 325 MG TABLET PO PRN (19:38)
[2018-05-11] MEDS ORDERED: GLUCAGON 1 MG VIAL IM PRN ×2 (19:38→20:03)
[2018-05-11] MEDS ORDERED: COLCHICINE 0.6 MG TABLET PO PRN (19:44)
[2018-05-11] MEDS: ZALEPLON 5 MG CAPSULE PO PRN (22:39)
[2018-05-11] MEDS: BUDESONIDE/FORMOTEROL 160-4.5 INHALER 6 GM INH SCH (22:39)
[2018-05-11] MEDS: CARVEDILOL 6.25 MG TABLET PO SCH (22:39)
[2018-05-11] MEDS: ROSUVASTATIN 10 MG TABLET PO SCH (22:40)
[2018-05-11] MEDS: INSULIN REGULAR 100 UNIT/ML SUBCUT SCH (22:41)
[2018-05-11] MEDS: ENOXAPARIN 30 MG/0.3 ML SYRINGE SUBCUT SCH (22:41)
[2018-05-11] MEDS: ALBUTEROL/IPRATROPIUM 3 ML NEB RESP TX SCH (23:10)
[2018-05-12] MEDS: ALBUTEROL/IPRATROPIUM 3 ML NEB RESP TX SCH ×6 (02:40→23:00)
[2018-05-12 07:31] LABS: Albumin 2.8 G/DL (3.4-5.0); Bilirubin,Total 0.6 MG/DL (0.2-1.0); Calcium 9.2 MG/DL (8.5-10.1); Osmolality,Calculated 320.4 MOS/KG (273-304); Potassium 3.7 MMOL/L (3.5-5.1); Total Protein 6.9 G/DL (6.4-8.3)
[2018-05-12] MEDS ORDERED: FUROSEMIDE 80 MG TABLET PO SCH (08:00)
[2018-05-12] MEDS: INSULIN REGULAR 100 UNIT/ML SUBCUT SCH ×4 (08:56→22:52)
[2018-05-12] MEDS: BUDESONIDE/FORMOTEROL 160-4.5 INHALER 6 GM INH SCH ×2 (09:07→20:57)
[2018-05-12] MEDS: PANTOPRAZOLE 40 MG TABLET PO SCH (09:07)
[2018-05-12] MEDS: CARVEDILOL 6.25 MG TABLET PO SCH ×2 (09:08→17:17)
[2018-05-12] MEDS: amLODIPine 10 MG TABLET PO SCH (09:08)
[2018-05-12] MEDS: metOLazone 5 MG TABLET PO SCH (09:08)
[2018-05-12] MEDS: ALLOPURINOL 100 MG TABLET PO SCH (09:08)
[2018-05-12] MEDS: predniSONE 10 MG TABLET PO SCH (09:08)
[2018-05-12] MEDS: NICOTINE 7 MG/24 HR PATCH TRANSDERM SCH (12:04)
[2018-05-12] MEDS: FUROSEMIDE 40 MG/4 ML VIAL IV SCH (15:44)
[2018-05-12] MEDS: ENOXAPARIN 30 MG/0.3 ML SYRINGE SUBCUT SCH (20:55)
[2018-05-12] MEDS: ROSUVASTATIN 10 MG TABLET PO SCH (20:55)
[2018-05-12] MEDS: ZALEPLON 5 MG CAPSULE PO PRN (20:55)
[2018-05-13] MEDS: ALBUTEROL/IPRATROPIUM 3 ML NEB RESP TX SCH ×6 (03:30→23:45)
[2018-05-13 04:22] LABS: Basophils % 0.3 % (0.0-0.8); Eosinophils % 0.7 % (0.00-10.9); Hematocrit 32.9 VOL% (35.7-47.0); Hemoglobin 10.7 GM/DL (12.0-16.0); Immature Granulocytes % 0.5 %; Immature Granulocytes Absolute 0.03 #; Lymphocytes % 17.4 % (21.3-54.2); Mean Corpuscular HGB Conc 32.5 GM/DL (32-36); Mean Corpuscular Hemoglobin 29 PG (27-34); Mean Corpuscular Volume 89.4 FL (87-102); Mean Platelet Volume 11.1 FL (9.6-12.0); Monocytes # 0.5 10*3/uL (0.11-0.8); Neutrophils # 4.2 10*3/uL (1.4-7.4); Neutrophils % 72.1 % (38.7-73.9); Platelet Count 145 T/CUMM (130-400); Red Blood Count 3.68 MC/CUMM (3.8-5.5); Red Cell Distribution Width 14.7 % (9.3-17.3); White Blood Count 5.9 T/CUMM (4-12)
[2018-05-13 04:38] LABS: Calcium 8.6 MG/DL (8.5-10.1); Osmolality,Calculated 315.8 MOS/KG (273-304); Potassium 3.1 MMOL/L (3.5-5.1)
[2018-05-13] MEDS: INSULIN REGULAR 100 UNIT/ML SUBCUT SCH ×3 (09:33→17:08)
[2018-05-13] MEDS: amLODIPine 10 MG TABLET PO SCH (09:40)
[2018-05-13] MEDS: ALLOPURINOL 100 MG TABLET PO SCH ×3 (09:40→10:43)
[2018-05-13] MEDS: PANTOPRAZOLE 40 MG TABLET PO SCH (09:40)
[2018-05-13] MEDS: metOLazone 5 MG TABLET PO SCH (09:40)
[2018-05-13] MEDS: CARVEDILOL 6.25 MG TABLET PO SCH ×2 (09:40→17:42)
[2018-05-13] MEDS: predniSONE 10 MG TABLET PO SCH (09:40)
[2018-05-13] MEDS: FUROSEMIDE 40 MG/4 ML VIAL IV SCH (09:41)
[2018-05-13] MEDS: BUDESONIDE/FORMOTEROL 160-4.5 INHALER 6 GM INH SCH ×2 (09:47→22:05)
[2018-05-13] MEDS: NICOTINE 7 MG/24 HR PATCH TRANSDERM SCH (09:47)
[2018-05-13] MEDS: cefTRIAXone 1,000 MG VIAL IV SCH (15:07)
[2018-05-13] MEDS: ONDANSETRON 4 MG/2 ML VIAL IV PRN ×2 (17:37→21:57)
[2018-05-13] MEDS: POTASSIUM CHLORIDE 20 MEQ TABLET PO PRN (17:41)
[2018-05-13] MEDS: ROSUVASTATIN 10 MG TABLET PO SCH (22:05)
[2018-05-13] MEDS: ENOXAPARIN 30 MG/0.3 ML SYRINGE SUBCUT SCH (22:05)
[2018-05-14] MEDS: INSULIN REGULAR 100 UNIT/ML SUBCUT SCH ×5 (01:09→21:57)
[2018-05-14] MEDS: ALBUTEROL/IPRATROPIUM 3 ML NEB RESP TX SCH ×6 (03:42→22:47)
[2018-05-14 09:42] LABS: Basophils % 0.3 % (0.0-0.8); Eosinophils # 0.1 10*3/uL (0.0-0.87); Hematocrit 34.4 VOL% (35.7-47.0); Hemoglobin 11.6 GM/DL (12.0-16.0); Immature Granulocytes % 0.5 %; Immature Granulocytes Absolute 0.03 #; Lymphocytes # 0.8 10*3/uL (1.4-4.0); Lymphocytes % 13.9 % (21.3-54.2); Mean Corpuscular HGB Conc 33.7 GM/DL (32-36); Mean Corpuscular Hemoglobin 30 PG (27-34); Mean Corpuscular Volume 89.1 FL (87-102); Mean Platelet Volume 11.4 FL (9.6-12.0); Monocytes # 0.6 10*3/uL (0.11-0.8); Monocytes % 9.1 % (1.7-12.7); Neutrophils # 4.6 10*3/uL (1.4-7.4); Neutrophils % 75.2 % (38.7-73.9); Platelet Count 153 T/CUMM (130-400); Red Blood Count 3.86 MC/CUMM (3.8-5.5); Red Cell Distribution Width 14.6 % (9.3-17.3); White Blood Count 6.1 T/CUMM (4-12)
[2018-05-14 10:11] LABS: Albumin 2.8 G/DL (3.4-5.0); Bilirubin,Direct 0.16 MG/DL (0.0-0.20); Bilirubin,Indirect 0.2 MG/DL (0.0-1.0); Bilirubin,Total 0.4 MG/DL (0.2-1.0); Calcium 8.7 MG/DL (8.5-10.1); Osmolality,Calculated 317.1 MOS/KG (273-304); Potassium 3.2 MMOL/L (3.5-5.1); Total Protein 6.9 G/DL (6.4-8.3)
[2018-05-14] MEDS: cefTRIAXone 1,000 MG VIAL IV SCH (10:30)
[2018-05-14] MEDS: amLODIPine 10 MG TABLET PO SCH (10:32)
[2018-05-14] MEDS: POTASSIUM CHLORIDE 20 MEQ TABLET PO PRN ×5 (10:33→19:50)
[2018-05-14] MEDS: ALLOPURINOL 100 MG TABLET PO SCH (10:34)
[2018-05-14] MEDS: CARVEDILOL 6.25 MG TABLET PO SCH ×2 (10:34→19:50)
[2018-05-14] MEDS: PANTOPRAZOLE 40 MG TABLET PO SCH (10:34)
[2018-05-14] MEDS: predniSONE 10 MG TABLET PO SCH (10:34)
[2018-05-14] MEDS: NICOTINE 7 MG/24 HR PATCH TRANSDERM SCH (10:35)
[2018-05-14] MEDS: FUROSEMIDE 40 MG/4 ML VIAL IV SCH (10:40)
[2018-05-14] MEDS ORDERED: LEVOFLOXACIN INJ 100 ML IV SCH (12:00)
[2018-05-14] MEDS: BUDESONIDE/FORMOTEROL 160-4.5 INHALER 6 GM INH SCH ×3 (14:10→21:57)
[2018-05-14] MEDS: LEVOFLOXACIN INJ 500 MG in PREMIX 1 EACH IV SCH (14:10)
[2018-05-14] MEDS: LACTULOSE 20 GM/30 ML UDCUP PO SCH ×2 (14:10→21:56)
[2018-05-14] MEDS: ONDANSETRON 4 MG/2 ML VIAL IV PRN (17:15)
[2018-05-14] MEDS: ROSUVASTATIN 10 MG TABLET PO SCH (21:56)
[2018-05-14] MEDS: ENOXAPARIN 30 MG/0.3 ML SYRINGE SUBCUT SCH (21:56)
[2018-05-14] MEDS: ZALEPLON 5 MG CAPSULE PO PRN (23:30)
[2018-05-15] MEDS: ALBUTEROL/IPRATROPIUM 3 ML NEB RESP TX SCH ×5 (02:29→19:51)
[2018-05-15 03:53] LABS: Basophils % 0.2 % (0.0-0.8); Eosinophils # 0.1 10*3/uL (0.0-0.87); Eosinophils % 1.2 % (0.00-10.9); Hematocrit 33.6 VOL% (35.7-47.0); Immature Granulocytes % 0.5 %; Immature Granulocytes Absolute 0.03 #; Lymphocytes # 1.1 10*3/uL (1.4-4.0); Lymphocytes % 17.5 % (21.3-54.2); Mean Corpuscular HGB Conc 32.7 GM/DL (32-36); Mean Corpuscular Hemoglobin 29 PG (27-34); Mean Corpuscular Volume 88.9 FL (87-102); Mean Platelet Volume 10.8 FL (9.6-12.0); Monocytes # 0.5 10*3/uL (0.11-0.8); Monocytes % 8.3 % (1.7-12.7); Neutrophils # 4.3 10*3/uL (1.4-7.4); Neutrophils % 72.3 % (38.7-73.9); Platelet Count 144 T/CUMM (130-400); Red Blood Count 3.78 MC/CUMM (3.8-5.5); Red Cell Distribution Width 14.4 % (9.3-17.3)
[2018-05-15 04:32] LABS: Calcium 8.9 MG/DL (8.5-10.1); Osmolality,Calculated 312.2 MOS/KG (273-304)
[2018-05-15] MEDS: INSULIN REGULAR 100 UNIT/ML SUBCUT SCH ×4 (09:26→22:18)
[2018-05-15] MEDS: amLODIPine 10 MG TABLET PO SCH (09:50)
[2018-05-15] MEDS: LACTULOSE 20 GM/30 ML UDCUP PO SCH ×2 (09:50→21:40)
[2018-05-15] MEDS: FUROSEMIDE 40 MG/4 ML VIAL IV SCH (09:50)
[2018-05-15] MEDS: PANTOPRAZOLE 40 MG TABLET PO SCH (09:51)
[2018-05-15] MEDS: ALLOPURINOL 100 MG TABLET PO SCH (09:51)
[2018-05-15] MEDS: CARVEDILOL 6.25 MG TABLET PO SCH ×2 (09:51→17:51)
[2018-05-15] MEDS: predniSONE 10 MG TABLET PO SCH (09:51)
[2018-05-15] MEDS: NICOTINE 7 MG/24 HR PATCH TRANSDERM SCH (09:51)
[2018-05-15] MEDS: BUDESONIDE/FORMOTEROL 160-4.5 INHALER 6 GM INH SCH ×2 (09:52→21:40)
[2018-05-15] MEDS: ROSUVASTATIN 10 MG TABLET PO SCH (21:40)
[2018-05-15] MEDS: ENOXAPARIN 30 MG/0.3 ML SYRINGE SUBCUT SCH (21:40)
[2018-05-16] MEDS: ALBUTEROL/IPRATROPIUM 3 ML NEB RESP TX SCH ×6 (00:09→19:42)
[2018-05-16] MEDS: ZALEPLON 5 MG CAPSULE PO PRN ×2 (00:17→21:33)
[2018-05-16 05:49] LABS: Basophils % 0.5 % (0.0-0.8); Eosinophils # 0.1 10*3/uL (0.0-0.87); Eosinophils % 2.5 % (0.00-10.9); Hematocrit 31.2 VOL% (35.7-47.0); Hemoglobin 10.5 GM/DL (12.0-16.0); Immature Granulocytes % 0.5 %; Immature Granulocytes Absolute 0.02 #; Lymphocytes % 22.3 % (21.3-54.2); Mean Corpuscular HGB Conc 33.7 GM/DL (32-36); Mean Corpuscular Hemoglobin 30 PG (27-34); Mean Corpuscular Volume 88.6 FL (87-102); Mean Platelet Volume 11.8 FL (9.6-12.0); Monocytes # 0.4 10*3/uL (0.11-0.8); Monocytes % 9.9 % (1.7-12.7); Neutrophils # 2.9 10*3/uL (1.4-7.4); Neutrophils % 64.3 % (38.7-73.9); Platelet Count 139 T/CUMM (130-400); Red Blood Count 3.52 MC/CUMM (3.8-5.5); Red Cell Distribution Width 14.3 % (9.3-17.3); White Blood Count 4.4 T/CUMM (4-12)
[2018-05-16 05:50] LABS: Calcium 8.4 MG/DL (8.5-10.1); Osmolality,Calculated 312.4 MOS/KG (273-304); Potassium 3.5 MMOL/L (3.5-5.1)
[2018-05-16] MEDS: INSULIN REGULAR 100 UNIT/ML SUBCUT SCH ×4 (09:28→21:33)
[2018-05-16] MEDS: PANTOPRAZOLE 40 MG TABLET PO SCH (09:32)
[2018-05-16] MEDS: POTASSIUM CHLORIDE 20 MEQ TABLET PO PRN ×2 (09:33→11:34)
[2018-05-16] MEDS: amLODIPine 10 MG TABLET PO SCH (09:33)
[2018-05-16] MEDS: CARVEDILOL 6.25 MG TABLET PO SCH ×2 (09:33→17:55)
[2018-05-16] MEDS: ALLOPURINOL 100 MG TABLET PO SCH ×2 (09:33→21:34)
[2018-05-16] MEDS: BUDESONIDE/FORMOTEROL 160-4.5 INHALER 6 GM INH SCH ×2 (09:33→21:33)
[2018-05-16] MEDS: NICOTINE 7 MG/24 HR PATCH TRANSDERM SCH (09:34)
[2018-05-16] MEDS: predniSONE 10 MG TABLET PO SCH (09:34)
[2018-05-16] MEDS: FUROSEMIDE 40 MG/4 ML VIAL IV SCH (09:34)
[2018-05-16] MEDS: LACTULOSE 20 GM/30 ML UDCUP PO SCH ×3 (10:06→21:33)
[2018-05-16] MEDS: LEVOFLOXACIN INJ 500 MG in PREMIX 1 EACH IV SCH (12:35)
[2018-05-16] MEDS: ROSUVASTATIN 10 MG TABLET PO SCH (21:33)
[2018-05-16] MEDS: ENOXAPARIN 30 MG/0.3 ML SYRINGE SUBCUT SCH (21:33)
[2018-05-17] MEDS: ALBUTEROL/IPRATROPIUM 3 ML NEB RESP TX SCH ×7 (00:16→23:12)
[2018-05-17 05:05] LABS: Basophils % 0.5 % (0.0-0.8); Eosinophils # 0.1 10*3/uL (0.0-0.87); Eosinophils % 1.9 % (0.00-10.9); Hematocrit 30.7 VOL% (35.7-47.0); Hemoglobin 10.1 GM/DL (12.0-16.0); Immature Granulocytes % 0.5 %; Immature Granulocytes Absolute 0.02 #; Lymphocytes # 1.1 10*3/uL (1.4-4.0); Lymphocytes % 24.9 % (21.3-54.2); Mean Corpuscular HGB Conc 32.9 GM/DL (32-36); Mean Corpuscular Hemoglobin 29 PG (27-34); Mean Corpuscular Volume 88.7 FL (87-102); Mean Platelet Volume 11.7 FL (9.6-12.0); Monocytes # 0.4 10*3/uL (0.11-0.8); Monocytes % 9.6 % (1.7-12.7); Neutrophils # 2.7 10*3/uL (1.4-7.4); Neutrophils % 62.6 % (38.7-73.9); Platelet Count 137 T/CUMM (130-400); Red Blood Count 3.46 MC/CUMM (3.8-5.5); Red Cell Distribution Width 14.1 % (9.3-17.3); White Blood Count 4.3 T/CUMM (4-12)
[2018-05-17 05:25] LABS: Calcium 8.4 MG/DL (8.5-10.1); Osmolality,Calculated 307.7 MOS/KG (273-304); Potassium 3.9 MMOL/L (3.5-5.1)
[2018-05-17] MEDS: INSULIN REGULAR 100 UNIT/ML SUBCUT SCH ×4 (07:51→21:41)
[2018-05-17] MEDS: BUDESONIDE/FORMOTEROL 160-4.5 INHALER 6 GM INH SCH ×2 (09:31→21:52)
[2018-05-17] MEDS: FUROSEMIDE 40 MG/4 ML VIAL IV SCH (09:31)
[2018-05-17] MEDS: LACTULOSE 20 GM/30 ML UDCUP PO SCH ×4 (09:31→21:52)
[2018-05-17] MEDS: PANTOPRAZOLE 40 MG TABLET PO SCH (09:32)
[2018-05-17] MEDS: predniSONE 20 MG TABLET PO SCH (09:32)
[2018-05-17] MEDS: NICOTINE 7 MG/24 HR PATCH TRANSDERM SCH (09:32)
[2018-05-17] MEDS: ALLOPURINOL 100 MG TABLET PO SCH (09:32)
[2018-05-17] MEDS: CARVEDILOL 6.25 MG TABLET PO SCH ×2 (09:32→17:50)
[2018-05-17] MEDS: amLODIPine 10 MG TABLET PO SCH (09:32)
[2018-05-17] MEDS: PHENYTOIN ER 100 MG CAPSULE PO SCH (21:40)
[2018-05-17] MEDS: ZALEPLON 5 MG CAPSULE PO PRN (21:41)
[2018-05-17] MEDS: ROSUVASTATIN 10 MG TABLET PO SCH (21:41)
[2018-05-17] MEDS: ENOXAPARIN 30 MG/0.3 ML SYRINGE SUBCUT SCH (21:41)
[2018-05-17] MEDS: POTASSIUM CHLORIDE 20 MEQ TABLET PO PRN (21:42)
[2018-05-18] MEDS: ALBUTEROL/IPRATROPIUM 3 ML NEB RESP TX SCH ×4 (03:38→14:00)
[2018-05-18 05:33] LABS: Basophils % 0.3 % (0.0-0.8); Eosinophils # 0.1 10*3/uL (0.0-0.87); Eosinophils % 1.8 % (0.00-10.9); Hematocrit 30.8 VOL% (35.7-47.0); Hemoglobin 10.4 GM/DL (12.0-16.0); Immature Granulocytes % 0.5 %; Immature Granulocytes Absolute 0.02 #; Lymphocytes % 25.1 % (21.3-54.2); Mean Corpuscular HGB Conc 33.8 GM/DL (32-36); Mean Corpuscular Hemoglobin 30 PG (27-34); Mean Corpuscular Volume 87.5 FL (87-102); Monocytes # 0.3 10*3/uL (0.11-0.8); Monocytes % 8.4 % (1.7-12.7); Neutrophils # 2.5 10*3/uL (1.4-7.4); Neutrophils % 63.9 % (38.7-73.9); Platelet Count 149 T/CUMM (130-400); Red Blood Count 3.52 MC/CUMM (3.8-5.5); Red Cell Distribution Width 13.8 % (9.3-17.3); White Blood Count 3.9 T/CUMM (4-12)
[2018-05-18 05:54] LABS: Calcium 8.6 MG/DL (8.5-10.1); Osmolality,Calculated 298.9 MOS/KG (273-304); Potassium 4.2 MMOL/L (3.5-5.1)
[2018-05-18] MEDS: INSULIN REGULAR 100 UNIT/ML SUBCUT SCH ×3 (07:24→16:32)
[2018-05-18] MEDS ORDERED: FUROSEMIDE 80 MG TABLET PO SCH (09:00)
[2018-05-18] MEDS: NICOTINE 7 MG/24 HR PATCH TRANSDERM SCH (09:41)
[2018-05-18] MEDS: LACTULOSE 20 GM/30 ML UDCUP PO SCH ×2 (09:41→16:17)
[2018-05-18] MEDS: amLODIPine 10 MG TABLET PO SCH (09:42)
[2018-05-18] MEDS: PHENYTOIN ER 100 MG CAPSULE PO SCH (09:42)
[2018-05-18] MEDS: predniSONE 20 MG TABLET PO SCH (09:42)
[2018-05-18] MEDS: ALLOPURINOL 100 MG TABLET PO SCH (09:42)
[2018-05-18] MEDS: CARVEDILOL 6.25 MG TABLET PO SCH ×2 (09:42→16:33)
[2018-05-18] MEDS: PANTOPRAZOLE 40 MG TABLET PO SCH (09:43)
[2018-05-18] MEDS: BUDESONIDE/FORMOTEROL 160-4.5 INHALER 6 GM INH SCH (09:51)
[2018-05-18] MEDS: LEVOFLOXACIN INJ 500 MG in PREMIX 1 EACH IV SCH (14:29)
[2018-05-18 16:06] VITALS: BP 123/71
== END 2018-05-18 16:45 | DRG 682 ==
LOC: EDUNIT# → EDBD → N.EDINP 15:53 → N.ED 15:53 → N.5E 20:41
PROVIDERS: ADMIT Internal Medicine; ATTEND Internal Medicine

== ENCOUNTER 2020-04-26 06:58 | Observation (INO) ==
[2020-04-26] MEDS ORDERED: ENOXAPARIN 60 MG/0.6 ML SYRINGE SUBCUT STA (07:16)
[2020-04-26] MEDS ORDERED: MORPHINE 4 MG/1 ML VIAL IV STA (07:17)
[2020-04-26] MEDS ORDERED: ASPIRIN CHEW 81 MG TABLET PO STA (07:17)
[2020-04-26] MEDS ORDERED: ONDANSETRON 4 MG/2 ML VIAL IV STA (07:17)
[2020-04-26] MEDS ORDERED: NITROGLYCERIN 2% OINT 1 INCH/GM PACK TOP STA (07:17)
[2020-04-26 07:27] LABS: Basophils % 0.7 % (0.0-0.8); Eosinophils # 0.2 10*3/uL (0.0-0.87); Eosinophils % 6.6 % (0.00-10.9); Hematocrit 28.8 VOL% (35.7-47.0); Hemoglobin 9.7 GM/DL (12.0-16.0); Lymphocytes # 1.2 10*3/uL (1.4-4.0); Lymphocytes % 42.9 % (21.3-54.2); Mean Corpuscular HGB Conc 33.7 GM/DL (32-36); Mean Platelet Volume 10.5 FL (9.6-12.0); Monocytes % 8.1 % (1.7-12.7); Neutrophils % 41.7 % (38.7-73.9); Platelet Count 128 T/CUMM (130-400); Red Blood Count 3.13 MC/CUMM (3.8-5.5); Red Cell Distribution Width 16.2 % (9.3-17.3); White Blood Count 2.7 T/CUMM (4-12)
[2020-04-26 07:44] LABS: Hypochromasia 1+
[2020-04-26 07:45] LABS: Microcytosis Slight; Ovalocytes Slight; Platelet Estimate Normal
[2020-04-26 07:56] LABS: Albumin 3.2 G/DL (3.4-5.0); Bilirubin,Total 0.4 MG/DL (0.2-1.0); Calcium 8.9 MG/DL (8.5-10.1); Osmolality,Calculated 310.1 MOS/KG (273-304); Total Protein 7.3 G/DL (6.4-8.3)
[2020-04-26] MEDS ORDERED: DEXTROSE 50% 25 GM/50 ML VIAL IV PRN (10:37)
[2020-04-26] MEDS ORDERED: ONDANSETRON 4 MG/2 ML VIAL IV PRN (10:37)
[2020-04-26] MEDS ORDERED: GLUCAGON 1 MG VIAL IM PRN (10:37)
[2020-04-26] MEDS ORDERED: ACETAMINOPHEN 325 MG TABLET PO PRN (10:37)
[2020-04-26 11:22] LABS: CKMB % 4.7 %
[2020-04-26 11:42] LABS: Troponin I 1.17 NG/ML (0.00-0.045)
[2020-04-26 14:01] LABS: CKMB % 4.8 %
[2020-04-26 14:06] LABS: Troponin I 1.45 NG/ML (0.00-0.045)
[2020-04-26] MEDS ORDERED: MULTIVITAMIN (CENTRUM) TABLET PO PRN (15:58)
[2020-04-26] MEDS ORDERED: MAGNESIUM SULF RIDER 4 GM in PREMIX 1 EACH IV PRN (16:15)
[2020-04-26] MEDS ORDERED: MAGNESIUM SULF RIDER 2 GM in PREMIX 1 EACH IV PRN (16:15)
[2020-04-26 16:44] LABS: Bacteria,Urine Occasional /HPF (Few); Bilirubin,Urine Negative (Negative); Blood, Urine Negative (Negative); Glucose,Urine (UA) Negative (Negative); Ketones,Urine Negative (Negative); Mucus,Urine Occasional /LPF (Occasional); Nitrite,Urine Negative (Negative); Protein,Urine 30 MG/DL; Squamous Epithelial Cell,Urine Occasional /HPF (0-10); Urine Appearance CLEAR (Clear); Urine Color Yellow (Yellow); Urine Specific Gravity 1.009 (1.001-1.035); Urine Urobilinogen < 2.0 EU/DL (0.2-1.0)
[2020-04-26 17:04] LABS: CKMB % 4.9 %
[2020-04-26 17:08] LABS: Troponin I 1.62 NG/ML (0.00-0.045)
[2020-04-26] MEDS: carvediloL 6.25 MG TABLET PO SCH (17:20)
[2020-04-26] MEDS: ISOSORBIDE MONONITRATE 30 MG TABLET PO SCH (17:20)
[2020-04-26] MEDS: allopurinoL 100 MG TABLET PO SCH (21:28)
[2020-04-26] MEDS: ROSUVASTATIN 10 MG TABLET PO SCH (21:29)
[2020-04-26] MEDS: FUROSEMIDE 80 MG TABLET PO SCH (21:29)
[2020-04-26] MEDS: PHENYTOIN ER 100 MG CAPSULE PO SCH (21:29)
[2020-04-26 23:11] LABS: CKMB % 4.7 %
[2020-04-26 23:22] LABS: Troponin I 1.89 NG/ML (0.00-0.045)
[2020-04-27 05:31] LABS: Basophils % 0.4 % (0.0-0.8); Eosinophils # 0.1 10*3/uL (0.0-0.87); Eosinophils % 5.2 % (0.00-10.9); Hematocrit 24.8 VOL% (35.7-47.0); Hemoglobin 8.4 GM/DL (12.0-16.0); Immature Granulocytes % 0.4 %; Immature Granulocytes Absolute 0.01 #; Lymphocytes # 0.9 10*3/uL (1.4-4.0); Lymphocytes % 34.7 % (21.3-54.2); Mean Corpuscular HGB Conc 33.9 GM/DL (32-36); Mean Corpuscular Volume 92.5 FL (87-102); Mean Platelet Volume 11.8 FL (9.6-12.0); Neutrophils % 51.3 % (38.7-73.9); Platelet Count 115 T/CUMM (130-400); Red Blood Count 2.68 MC/CUMM (3.8-5.5); Red Cell Distribution Width 15.9 % (9.3-17.3); White Blood Count 2.5 T/CUMM (4-12)
[2020-04-27 05:56] LABS: Calcium 8.2 MG/DL (8.5-10.1); Osmolality,Calculated 318.5 MOS/KG (273-304); Risk Ratio 1.63; Thyroid Stimulating Hormone 2.18 uIU/ml (0.358-3.74); VLDL CHOLESTEROL 13.4 MG/DL
[2020-04-27 05:57] LABS: Hypochromasia Slight; Platelet Estimate Normal
[2020-04-27] MEDS: ISOSORBIDE MONONITRATE 30 MG TABLET PO SCH (10:22)
[2020-04-27] MEDS: carvediloL 6.25 MG TABLET PO SCH ×2 (10:22→16:44)
[2020-04-27] MEDS: allopurinoL 100 MG TABLET PO SCH ×2 (10:23→20:54)
[2020-04-27] MEDS: amLODIPine 5 MG TABLET PO SCH (10:23)
[2020-04-27] MEDS: FUROSEMIDE 80 MG TABLET PO SCH ×2 (10:23→20:53)
[2020-04-27] MEDS: BUDESONIDE/FORMOTEROL 160-4.5 INHALER 6 GM INH SCH ×3 (10:23→20:54)
[2020-04-27] MEDS: PANTOPRAZOLE 40 MG TABLET PO SCH (10:23)
[2020-04-27] MEDS: PHENYTOIN ER 100 MG CAPSULE PO SCH ×2 (10:24→20:53)
[2020-04-27] MEDS: HEPARIN 5,000 UNIT/1 ML VIAL SUBCUT SCH ×2 (10:39→16:53)
[2020-04-27] MEDS: ROSUVASTATIN 10 MG TABLET PO SCH (20:54)
[2020-04-28] MEDS: HEPARIN 5,000 UNIT/1 ML VIAL SUBCUT SCH ×2 (01:42→09:11)
[2020-04-28] MEDS ORDERED: MORPHINE 4 MG/1 ML VIAL IV PRN (01:49)
[2020-04-28] MEDS ORDERED: metOLazone 5 MG TABLET PO SCH (08:00)
[2020-04-28 08:22] VITALS: BP 139/70
[2020-04-28] MEDS: allopurinoL 100 MG TABLET PO SCH (09:10)
[2020-04-28] MEDS: PHENYTOIN ER 100 MG CAPSULE PO SCH (09:10)
[2020-04-28] MEDS: carvediloL 6.25 MG TABLET PO SCH (09:10)
[2020-04-28] MEDS: PANTOPRAZOLE 40 MG TABLET PO SCH (09:10)
[2020-04-28] MEDS: FUROSEMIDE 80 MG TABLET PO SCH (09:10)
[2020-04-28] MEDS: ISOSORBIDE MONONITRATE 30 MG TABLET PO SCH (09:10)
[2020-04-28] MEDS: amLODIPine 5 MG TABLET PO SCH (09:11)
[2020-04-28] MEDS: BUDESONIDE/FORMOTEROL 160-4.5 INHALER 6 GM INH SCH (09:17)
== END 2020-04-28 13:07 | disposition home health service (06) ==
LOC: EDBD → EDUNIT# → N.ED 06:58 → N.EDINP 06:58 → N.TELEN 09:49
PROVIDERS: ADMIT Internal Medicine; ATTEND Internal Medicine

== ENCOUNTER 2020-09-08 20:35 | Inpatient (IN) ==
[2020-09-08 21:10] LABS: Eosinophils # 0.1 10*3/uL (0.0-0.87); Eosinophils % 3.3 % (0.00-10.9); Immature Granulocytes % 0.9 %; Immature Granulocytes Absolute 0.02 #; Lymphocytes # 0.7 10*3/uL (1.4-4.0); Lymphocytes % 31.8 % (21.3-54.2); Mean Corpuscular HGB Conc 33.5 GM/DL (32-36); Mean Corpuscular Volume 89.6 FL (87-102); Mean Platelet Volume 10.4 FL (9.6-12.0); Monocytes % 8.4 % (1.7-12.7); Neutrophils % 55.6 % (38.7-73.9); Platelet Count 67 T/CUMM (130-400); Red Blood Count 1.83 MC/CUMM (3.8-5.5); Red Cell Distribution Width 16.3 % (9.3-17.3); White Blood Count 2.1 T/CUMM (4-12)
[2020-09-08 21:13] LABS: Hemoglobin 5.5 GM/DL (12.0-16.0)
[2020-09-08 21:14] LABS: Hematocrit 16.4 VOL% (35.7-47.0)
[2020-09-08 21:45] LABS: Bacteria,Urine Moderate /HPF (Few); Bilirubin,Urine Negative (Negative); Blood, Urine Negative (Negative); Glucose,Urine (UA) Negative (Negative); Ketones,Urine Negative (Negative); Mucus,Urine Occasional /LPF (Occasional); Nitrite,Urine Negative (Negative); Protein,Urine Negative; RBC,Urine 2 /HPF (0-4); Squamous Epithelial Cell,Urine Occasional /HPF (0-10); Urine Appearance CLEAR (Clear); Urine Color Yellow (Yellow); Urine Urobilinogen < 2.0 EU/DL (0.2-1.0); WBC,Urine 5 /HPF (0-6)
[2020-09-08 21:48] LABS: Albumin 2.8 G/DL (3.4-5.0); Bilirubin,Total 0.4 MG/DL (0.2-1.0); Calcium 6.9 MG/DL (8.5-10.1); Osmolality,Calculated 334.4 MOS/KG (273-304); Potassium 3.5 MMOL/L (3.5-5.1); Total Protein 6.6 G/DL (6.4-8.3)
[2020-09-08] MEDS ORDERED: SODIUM CHLORIDE 0.9% 1,000 ML IV PRN (22:00)
[2020-09-08] MEDS: SODIUM CHLORIDE 0.9% 1,000 ML IV STA ×2 (22:01→22:07)
[2020-09-08] MEDS ORDERED: SODIUM CHLORIDE 0.9% 500 ML IV STA (22:01)
[2020-09-08] MEDS ORDERED: DEXTROSE 50% 25 GM/50 ML VIAL IV PRN (22:49)
[2020-09-08] MEDS ORDERED: guaiFENesin/DM ER 600-30 MG TABLET PO PRN (22:49)
[2020-09-08] MEDS ORDERED: ONDANSETRON 4 MG/2 ML VIAL IV PRN (22:49)
[2020-09-08] MEDS ORDERED: ZALEPLON 5 MG CAPSULE PO PRN (22:49)
[2020-09-08] MEDS ORDERED: CALCIUM CARBONATE CHEW 500 MG TABLET PO PRN (22:49)
[2020-09-08] MEDS ORDERED: GLUCAGON 1 MG VIAL IM PRN (22:49)
[2020-09-08] MEDS ORDERED: BISACODYL 5 MG TABLET PO PRN (22:49)
[2020-09-08] MEDS ORDERED: ACETAMINOPHEN 325 MG TABLET PO PRN (22:49)
[2020-09-08] MEDS ORDERED: hydrALAZINE 20 MG/1 ML VIAL IV PRN (22:49)
[2020-09-08] MEDS ORDERED: ALUMINUM/MAGNES/SIMETH MAX STR 30 ML UDCUP PO PRN (22:49)
[2020-09-08] MEDS ORDERED: diphenhydrAMINE CAP 25 MG CAPSULE PO PRN (22:49)
[2020-09-08] MEDS ORDERED: SIMETHICONE CHEW 125 MG TABLET PO PRN (22:49)
[2020-09-08] MEDS ORDERED: NICOTINE 21 MG/24 HR PATCH TRANSDERM PRN (22:49)
[2020-09-08 23:10] LABS: % Iron Saturation 44.3 % (18-50)
[2020-09-08] MEDS ORDERED: FUROSEMIDE 40 MG/4 ML VIAL ONE ×2 (23:38→23:55)
[2020-09-08] MEDS ORDERED: FUROSEMIDE 20 MG/2 ML VIAL IV STA ×2 (23:40→23:52)
[2020-09-09] MEDS: ALBUTEROL/IPRATROPIUM 3 ML NEB RESP TX SCH ×4 (00:10→18:41)
[2020-09-09 06:17] LABS: Basophils % 0.5 % (0.0-0.8); Eosinophils % 1.5 % (0.00-10.9); Immature Granulocytes % 0.5 %; Immature Granulocytes Absolute 0.01 #; Lymphocytes # 0.6 10*3/uL (1.4-4.0); Lymphocytes % 31.5 % (21.3-54.2); Mean Corpuscular HGB Conc 34.7 GM/DL (32-36); Mean Corpuscular Volume 87.9 FL (87-102); Mean Platelet Volume 10.6 FL (9.6-12.0); Platelet Count 62 T/CUMM (130-400)
[2020-09-09 06:22] LABS: Hematocrit 16.7 VOL% (35.7-47.0); Hemoglobin 5.8 GM/DL (12.0-16.0)
[2020-09-09 06:41] LABS: Albumin 2.7 G/DL (3.4-5.0); Bilirubin,Total 0.6 MG/DL (0.2-1.0); Calcium 7.1 MG/DL (8.5-10.1); Osmolality,Calculated 336.3 MOS/KG (273-304); Potassium 3.3 MMOL/L (3.5-5.1); Total Protein 6.4 G/DL (6.4-8.3)
[2020-09-09] MEDS ORDERED: BUDESONIDE/FORMOTEROL 160-4.5 INHALER 6 GM INH SCH (09:00)
[2020-09-09] MEDS ORDERED: AZITHROMYCIN INJ 250 MG in SODIUM CHLORIDE 0.9% 250 ML IV SCH (11:00)
[2020-09-09] MEDS: cefTRIAXone 1,000 MG in SYRINGE 1 EACH IV SCH (12:40)
[2020-09-09] MEDS ORDERED: MORPHINE 4 MG/1 ML VIAL ONE (12:53)
[2020-09-09] MEDS ORDERED: hydrOXYzine HCL 10 MG TABLET PO ONE (13:00)
[2020-09-09] MEDS: PANTOPRAZOLE 40 MG TABLET PO SCH (13:10)
[2020-09-09] MEDS: PHENYTOIN ER 100 MG CAPSULE PO SCH ×2 (13:10→21:23)
[2020-09-09] MEDS: carvediloL 6.25 MG TABLET PO SCH ×2 (13:10→17:15)
[2020-09-09] MEDS ORDERED: POTASSIUM CHLORIDE 20 MEQ TABLET PO ONE (15:00)
[2020-09-09] MEDS ORDERED: SODIUM CHLORIDE 0.9% 1,000 ML IV PRN (15:28)
[2020-09-09] MEDS ORDERED: FUROSEMIDE 40 MG/4 ML VIAL IV ONE (15:37)
[2020-09-09] MEDS: AZITHROMYCIN 250 MG TABLET PO SCH (15:50)
[2020-09-09] MEDS: ROSUVASTATIN 10 MG TABLET PO SCH (21:23)
[2020-09-09] MEDS: MORPHINE 4 MG/1 ML VIAL IV PRN (23:16)
[2020-09-10] MEDS: ALBUTEROL/IPRATROPIUM 3 ML NEB RESP TX SCH ×4 (00:29→19:26)
[2020-09-10 06:06] LABS: Basophils % 0.2 % (0.0-0.8); Hematocrit 23.7 VOL% (35.7-47.0); Immature Granulocytes % 0.4 %; Immature Granulocytes Absolute 0.02 #; Lymphocytes # 0.6 10*3/uL (1.4-4.0); Lymphocytes % 12.1 % (21.3-54.2); Mean Corpuscular HGB Conc 32.1 GM/DL (32-36); Mean Corpuscular Volume 91.5 FL (87-102); Mean Platelet Volume 11.5 FL (9.6-12.0); Monocytes % 5.5 % (1.7-12.7); Neutrophils % 81.8 % (38.7-73.9); Red Cell Distribution Width 16.9 % (9.3-17.3)
[2020-09-10] MEDS: MORPHINE 4 MG/1 ML VIAL IV PRN ×2 (06:07→16:24)
[2020-09-10 06:17] LABS: Platelet Count 65 T/CUMM (130-400); Red Blood Count 2.59 MC/CUMM (3.8-5.5)
[2020-09-10 06:18] LABS: Hemoglobin 7.6 GM/DL (12.0-16.0); White Blood Count 5.1 T/CUMM (4-12)
[2020-09-10 06:26] LABS: Calcium 7.6 MG/DL (8.5-10.1); Osmolality,Calculated 342.1 MOS/KG (273-304); Potassium 4.6 MMOL/L (3.5-5.1)
[2020-09-10 06:27] LABS: Hypochromasia 3+; Microcytosis 2+; Ovalocytes 2+; Platelet Estimate Decreased; Target Cells Few
[2020-09-10 06:28] LABS: Polychromasia Few
[2020-09-10] MEDS: PANTOPRAZOLE 40 MG TABLET PO SCH (08:51)
[2020-09-10] MEDS: MULTIVITAMIN (CENTRUM) TABLET PO SCH (08:51)
[2020-09-10] MEDS: carvediloL 6.25 MG TABLET PO SCH ×2 (08:51→16:25)
[2020-09-10] MEDS: PHENYTOIN ER 100 MG CAPSULE PO SCH ×2 (08:51→21:11)
[2020-09-10] MEDS: AZITHROMYCIN 250 MG TABLET PO SCH (08:52)
[2020-09-10] MEDS: FUROSEMIDE 40 MG/4 ML VIAL IV SCH (15:29)
[2020-09-10] MEDS: cefTRIAXone 1,000 MG in SYRINGE 1 EACH IV SCH (16:23)
[2020-09-10] MEDS: ROSUVASTATIN 10 MG TABLET PO SCH (21:11)
[2020-09-11] MEDS: ALBUTEROL/IPRATROPIUM 3 ML NEB RESP TX SCH ×3 (01:21→12:50)
[2020-09-11 06:02] LABS: Basophils % 0.2 % (0.0-0.8); Hemoglobin 7.6 GM/DL (12.0-16.0); Immature Granulocytes % 0.4 %; Immature Granulocytes Absolute 0.02 #; Lymphocytes # 0.6 10*3/uL (1.4-4.0); Lymphocytes % 12.3 % (21.3-54.2); Mean Corpuscular Volume 91.6 FL (87-102); Mean Platelet Volume 11.1 FL (9.6-12.0); NRBC # 0.02 10*3/uL; Neutrophils % 83.1 % (38.7-73.9); Platelet Count 67 T/CUMM (130-400); Red Blood Count 2.51 MC/CUMM (3.8-5.5); Red Cell Distribution Width 16.9 % (9.3-17.3); White Blood Count 4.5 T/CUMM (4-12)
[2020-09-11 06:43] LABS: Osmolality,Calculated 353.6 MOS/KG (273-304); Potassium 4.3 MMOL/L (3.5-5.1)
[2020-09-11] MEDS: FUROSEMIDE 40 MG/4 ML VIAL IV SCH (09:52)
[2020-09-11] MEDS: carvediloL 6.25 MG TABLET PO SCH (10:51)
[2020-09-11] MEDS: PHENYTOIN ER 100 MG CAPSULE PO SCH (10:52)
[2020-09-11] MEDS: MULTIVITAMIN (CENTRUM) TABLET PO SCH (10:52)
[2020-09-11] MEDS: PANTOPRAZOLE 40 MG TABLET PO SCH (10:52)
[2020-09-11] MEDS: AZITHROMYCIN 250 MG TABLET PO SCH (10:53)
[2020-09-11] MEDS: cefTRIAXone 1,000 MG in SYRINGE 1 EACH IV SCH (12:06)
[2020-09-11] MEDS: MORPHINE 4 MG/1 ML VIAL IV PRN (12:54)
[2020-09-11 13:01] VITALS: BP 122/67
== END 2020-09-11 14:06 | disposition hospice, home (50) | DRG 808 ==
LOC: EDBD → EDUNIT# → N.ED 20:35 → N.EDINP 22:50 → OBSVTOIN 22:50 → INTOOBSV 22:50 → N.TELES 23:49
PROVIDERS: ADMIT Internal Medicine; ATTEND Internal Medicine